=== PATIENT | male | born 1940 | race American Indian/Alaskan Native ===

== ENCOUNTER 2020-08-02 22:40 | Emergency (ER) | payer OTHER, MEDICARE ==
--- NOTE | 2020-08-02 23:36 | Emergency Department Report ---
ED General Adult HPI - General Chief complaint: Urogenital-Male Stated complaint: TESTICULAR BLEEDING Time Seen by Provider: 08/02/20 23:28 Source: patient Mode of arrival: Ambulatory Limitations: No Limitations - History of Present Illness Initial comments: Patient is 79 years old male with history of hypertension and right inguinal hernia. Patient presented to the ER stating that he found blood on his scrotum. Patient stated that he does not remember any injury or scratch. Patient also denied any hematuria or hematochezia. Patient is not on any blood thinner medicine. Patient denied any testicular pain. Patient also denied any fever or chills. - Related Data Allergies Allergy/AdvReac Type Severity Reaction Status Date / Time No Known Allergies Allergy Unverified 08/02/20 23:02 ED Review of Systems ROS: Stated complaint: TESTICULAR BLEEDING Other details as noted in HPI Comment: All other systems reviewed and negative Constitutional: denies: chills, fever Respiratory: denies: cough, shortness of breath, SOB with exertion, SOB at rest Cardiovascular: denies: chest pain, palpitations Gastrointestinal: denies: abdominal pain, nausea, vomiting Genitourinary: denies: urgency, dysuria, frequency, hematuria, discharge, testicular pain, testicular mass Musculoskeletal: denies: back pain ED Past Medical Hx - Past Medical History Hx Hypertension: Yes Additional medical history: inguinal hernia - Social History Smoking Status: Never Smoker ED Physical Exam - General Limitations: No Limitations General appearance: alert, in no apparent distress - Head Head exam: Present: atraumatic, normocephalic, normal inspection - Eye Eye exam: Present: normal appearance, PERRL - ENT ENT exam: Present: normal exam, normal orophraynx, mucous membranes moist - Neck Neck exam: Present: normal inspection, full ROM. Absent: tenderness, meningismus - Respiratory Respiratory exam: Present: normal lung sounds bilaterally - Cardiovascular Cardiovascular Exam: Present: regular rate, normal rhythm, normal heart sounds - GI/Abdominal GI/Abdominal exam: Present: soft, normal bowel sounds. Absent: distended, tenderness, guarding, rebound, rigid, organomegaly, mass, bruit, pulsatile mass, hernia - Extremities Exam Extremities exam: Present: normal inspection, full ROM, normal capillary refill. Absent: tenderness - Back Exam Back exam: Present: normal inspection, full ROM. Absent: CVA tenderness (R) - Neurological Exam Neurological exam: Present: alert, oriented X3, CN II-XII intact - Psychiatric Psychiatric exam: Present: normal mood - Skin Skin exam: Present: warm, intact, normal color ED Course Vital Signs 08/02/20 08/03/20 23:00 00:26 Temperature 98.1 F 98 F Pulse Rate 80 72 Respiratory 18 19 Rate Blood Pressure 175/100 Blood Pressure 165/95 [Left] O2 Sat by Pulse 93 100 Oximetry ED Medical Decision Making - Lab Data Result diagrams: 08/03/20 00:24 08/03/20 00:24 - Medical Decision Making Patient is 79 years old male with history of hypertension and right inguinal hernia. Patient presented to the ER stating that he found blood on his scrotum. Patient stated that he does not remember any injury or scratch. Patient also denied any hematuria or hematochezia. Patient is not on any blood thinner me dicine. Patient denied any testicular pain. Patient also denied any fever or chills. Scrotal exam showed no evidence of injury or active bleeding. Labs reviewed and is unremarkable. No more bleeding observed in the ER. Patient advised to follow-up with his primary doctor in the next 2 to 3 days and to return to the ER if he develop any new symptoms. Critical care attestation.: If time is entered above; I have spent that time in minutes in the direct care of this critically ill patient, excluding procedure time. ED Disposition Clinical Impression: Abrasion of scrotum Disposition: - TO HOME OR SELFCARE Is pt being admited?: No Condition: Stable Instructions: Abrasion Referrals: JOVAN LUNA [Other] - 3-5 Days
[2020-08-03 00:41] LABS: Eosinophils # (Auto) 0.2 K/mm3 (0.0-0.4); Eosinophils % (Auto) 5.3 % (0.0-4.3); Lymphocytes # (Auto) 0.7 K/mm3 (1.2-5.4); Lymphocytes % (Auto) 21.2 % (13.4-35.0); Mean Corpuscular HGB Conc 36 % (32-34); Mean Corpuscular Volume 82 fl (84-94); Monocytes # (Auto) 0.4 K/mm3 (0.0-0.8); Monocytes % (Auto) 11.1 % (0.0-7.3); Platelet Count 225 K/mm3 (140-440); Red Blood Count 4.86 M/mm3 (3.65-5.03); Red Cell Distribution Width 13.5 % (13.2-15.2)
[2020-08-03 00:44] LABS: Bacteria,Urine 1+ /HPF (Negative); Bilirubin,Urine NEG (Negative); Blood,Urine NEG (Negative); Color,Urine Yellow (Yellow); Mucus,Urine FEW /HPF; Protein,Urine <15 mg/dL mg/dL (Negative)
[2020-08-03 00:45] LABS: Hemoglobin 14.4 gm/dl (11.8-15.2)
[2020-08-03 00:49] LABS: INR 1.06 (0.87-1.13)
[2020-08-03 00:50] LABS: Partial Thromboplastin Time 27.5 Sec. (24.2-36.6)
[2020-08-03 01:01] LABS: Alanine Aminotransferase 15 units/L (7-56); Albumin 4.5 g/dL (3.9-5); BUN/Creatinine Ratio 19; Blood Urea Nitrogen 19 mg/dL (9-20); Calcium 8.9 mg/dL (8.4-10.2); Hemolysis Index 6
[2020-08-03 01:39] VITALS: BP 131/72
== END 2020-08-03 01:39 | disposition home or self-care (01) ==
LOC: ED 22:40
DX: S30.813A Abrasion of scrotum and testes, initial encounter (principal); I10 Essential (primary) hypertension; X58.XXXA Exposure to other specified factors, initial encounter; Y93.89 Activity, other specified; Y92.89 Other specified places as the place of occurrence of the external cause; Y99.8 Other external cause status
CPT/HCPCS: 36415; 80053; 81001; 85025; 85610; 85730